=== PATIENT | female | born 1965 | race Caucasian/White ===

== ENCOUNTER 2018-10-15 05:51 | Day surgery (SDC) | payer BC ==
[2018-10-15] MEDS ORDERED: DIPRIVAN 200 MG/20 ML IV ONE (05:52)
[2018-10-15] MEDS ORDERED: Lactated Ringers 1,000 ML IV ONE ×2 (06:51→11:42)
[2018-10-15] MEDS ORDERED: Lactated Ringers 1,000 ML IV SCH (07:00)
[2018-10-15 09:08] VITALS: O2SAT 97
[2018-10-15 09:22] VITALS: BP 125/79; PULSE 79
--- NOTE | 2018-10-15 10:58 | OP ---
SURGERY DATE: 10/15/18 SURGERY TIME: 757 PREOPERATIVE DIAGNOSIS: 1. SCREENING EXAM. POSTOPERATIVE DIAGNOSIS: 1. SIGMOID DIVERTICULOSIS, OTHERWISE NORMAL COLON. PROCEDURE: 1. Colonoscopy. SURGEON: Dr. Griffin. ANESTHESIA: MAC. Medications given by the Anesthesia Department. BRIEF HISTORY: The patient is a 53 y/o WF presenting now for screening colonoscopy. She reports that she has had a previous colonoscopy years ago, but does not remember the results. The patient was felt to need to have endoscopic evaluation. She was appraised of the risks of the procedure including the risk of perforation, phlebitis, untoward reaction to medication, bleeding, and missed lesions. The patient verbalized her understanding and desired to have the procedure performed. DESCRIPTION OF PROCEDURE: The patient was given the medications by the Anesthesia Department. She had continuous pulse oximetry, ECG monitoring, intermittent BP monitoring, and end tidal CO2 monitoring during the examination. She was placed in the left lateral decubitus position. A digital rectal examination was performed and revealed normal anal sphincter tone and no masses. The flexible Olympus pediatric colonoscope was used to intubate the rectum. A view of the colon was developed sequentially to the cecum. Upon insertion and withdrawal, including retroflex view in the rectum was noted moderate sigmoid diverticulosis, otherwise no mucosal lesions were encountered. The scope was removed from the patient who tolerated the procedure well and was sent back to OP recovery in good condition. The prep was noted to be fair.
== END 2018-10-15 09:23 | disposition home or self-care (01) ==
LOC: SDC 05:51
PROVIDERS: ATTEND Family Medicine
PROC: 0DJD8ZZ Inspection of Lower Intestinal Tract, Via Natural or Artificial Opening Endoscopic (ICD-10-PCS; principal; 2018-10-15)
DX: Z12.11 Encounter for screening for malignant neoplasm of colon (principal); K57.30 Diverticulosis of large intestine without perforation or abscess without bleeding; E11.9 Type 2 diabetes mellitus without complications; Z85.3 Personal history of malignant neoplasm of breast; Z79.4 Long term (current) use of insulin; Z79.01 Long term (current) use of anticoagulants
CPT/HCPCS: 82962; J2704

== ENCOUNTER 2019-09-18 01:56 | Emergency (ER) | payer BC ==
--- NOTE | 2019-09-18 02:05 | ERPHSYRPT ---
- History of Present Illness Time Seen by Provider: 09/18/19 02:10 Source: patient Exam Limitations: no limitations Physician History: 54 y/o white female presents with left flank pain and bilat suprapubic cramping. sx began yesterday evening. sx worse in last 3 hours. pt having frequency. no dysuria. no vomiting. Timing/Duration: yesterday, worse (in last 3 hours) Quality: aching, pressure Onset Location: suprapubic, left flank Pain Radiation: suprapubic, generalized flank Severity of Pain-Max: mild Severity of Pain-Current: mild Associated Symptoms: abdominal pain (suprapubic), chills (one episode yesterday) , urinary frequency, lower back pain, No nausea, No vomiting, No dysuria Allergies/Adverse Reactions: amoxicillin Allergy (Verified 09/18/19 02:13) Rash zolpidem [From Ambien] Allergy (Verified 09/18/19 02:13) Rash Home Medications: Apixaban [Eliquis 2.5 mg Tablet] 2.5 mg PO BID 09/30/18 [History] Metformin HCl 500 mg [Glucophage 500 MG] 1,000 mg PO BIDWM 09/30/18 [ History] Oxybutynin Chloride [Oxybutynin Chloride ER] 5 mg PO DAILY 09/18/19 [History] Venlafaxine HCl [Venlafaxine HCl ER] 37.5 mg PO DAILY 09/18/19 [History] Hx Tetanus, Diphtheria Vaccination/Date Given: No Hx Influenza Vaccination/Date Given: Yes Hx Pneumococcal Vaccination/Date Given: Yes - Review of Systems Constitutional: No Symptoms Eyes: No Symptoms Ears, Nose, & Throat: No Symptoms Respiratory: No Symptoms Cardiac: No Symptoms Abdominal/Gastrointestinal: Abdominal Pain (suprapubic ), No Nausea, No Vomiting , No Diarrhea Genitourinary Symptoms: Frequency, Flank Pain (left), No Dysuria, No Urinary Retention Musculoskeletal: No Symptoms Skin: No Symptoms Neurological: No Symptoms Psychological: No Symptoms Endocrine: No Symptoms Hematologic/Lymphatic: No Symptoms - Past Medical History Pertinent Past Medical History: Yes Neurological History: No Pertinent History ENT History: No Pertinent History Cardiac History: Deep Vein Thrombosis Respiratory History: No Pertinent History Endocrine Medical History: No Pertinent History, Diabetes Type II Musculoskeletal History: No Pertinent History GI Medical History: Pancreatitis, Other History: No Pertinent History Psycho-Social History: Depression Female Reproductive Disorders: Fibroids, Breast Cancer, Endometriosis Other Medical History: bharat for surgery on right foot tomorrow - Past Surgical History Past Surgical History: Yes Neuro Surgical History: No Pertinent History Cardiac: No Pertinent History Respiratory: No Pertinent History Gastrointestinal: Cholecystectomy, Pancreatic Surgery Genitourinary: Other Musculoskeletal: No Pertinent History Female Surgical History: Mastectomy, Hysterectomy, Tubal Ligation Other Surgical History: ercp - open abd surgery involving pancrease, gallbladder and peritonitis,stent in bile duct,breast reconstruction,blood clot in foot traveled to lungs - Social History Smoking Status: Never smoker Exposure to second hand smoke: No Drug Use: none Patient Lives Alone: No - Nursing Vital Signs Nursing Vital Signs: Initial Vital Signs Temperature 97.9 F 09/18/19 02:07 Pulse Rate 93 H 09/18/19 02:07 Respiratory Rate 17 09/18/19 02:07 Blood Pressure 145/94 09/18/19 02:07 O2 Sat by Pulse Oximetry 95 09/18/19 02:07 Pain Scale Pain Intensity 9 - Physical Exam General Appearance: mild distress, alert, anxiety Eye Exam: PERRL/EOMI, eyes nml inspection Ears, Nose, Throat Exam: normal ENT inspection, moist mucous membranes Neck Exam: normal inspection, non-tender, supple, full range of motion Respiratory Exam: normal breath sounds, lungs clear, airway intact, No chest tenderness, No respiratory distress Cardiovascular Exam: regular rate/rhythm, normal heart sounds, normal peripheral pulses Gastrointestinal/Abdomen Exam: soft, normal bowel sounds, No tenderness, No guarding, No rebound Pelvic Exam: not done Rectal Exam: not done Back Exam: normal inspection, normal range of motion, CVA tenderness (left) Extremity Exam: normal inspection, normal range of motion, pelvis stable Neurologic Exam: alert, oriented x 3, cooperative, apparel pattern maker II-XII nml as tested Skin Exam: normal color, warm, dry Lymphatic Exam: adenopathy SpO2 Interpretation: normal O2 Delivery: Room Air Ordered Tests: Active Orders 24 hr Category Date Time Status CULTURE,URINE Stat Lab 09/18/19 03:06 Received UA W/RFX UR CULTURE Stat Lab 09/18/19 03:06 Completed Medication Summary Discontinued Medications Generic Name Dose Route Start Last Admin Trade Name Freq PRN Reason Stop Dose Admin Ceftriaxone Sodium 1,000 mg 09/18/19 03:34 Rocephin 1000 Mg Inj IM 09/18/19 03:35 STAT ONE Hydromorphone HCl 1 mg 09/18/19 03:34 Hydromorphone 1 Mg/Ml Ampule IM 09/18/19 03:35 STAT ONE Ondansetron HCl 4 mg 09/18/19 03:35 Zofran Odt 4 Mg PO 09/18/19 03:36 STAT ONE Trimethoprim/Sulfamethoxazole 1 tab 09/18/19 03:34 Bactrim Ds Tablet PO 09/18/19 03:35 STAT ONE Lab/Rad Data: Laboratory Results 09/18/19 Range/Units 03:06 Urine Color YELLOW (YELLOW) Urine Appearance CLOUDY (CLEAR) Urine pH 6.0 (5-6) Ur Specific [place] 1.016 (1.005-1.025) Urine Protein 100 (Negative) Urine Ketones NEGATIVE (NEGATIVE) Urine Blood LARGE (0-5) Wally/ul Urine Nitrite NEGATIVE (NEGATIVE) Urine Bilirubin NEGATIVE (NEGATIVE) Urine Urobilinogen NEGATIVE (0-1) mg/dL Ur Leukocyte Esterase LARGE (NEGATIVE) Urine WBC (Auto) >100 (0-5) /HPF Urine RBC (Auto) >101 (0-2) /HPF U Epithel Cells (Auto) NONE (FEW) /HPF Urine Bacteria (Auto) FEW (NEGATIVE) /HPF Urine Mucus (Auto) SLIGHT (NEGATIVE) /HPF Urine Culture Reflexed YES (NO) Urine Glucose NEGATIVE (NEGATIVE) mg/dL - Progress Progress: improved Air Movement: good Blood Culture(s) Obtained: No Antibiotics given: Yes Counseled pt/family regarding: lab results, diagnosis, need for follow-up - Departure Departure Disposition: Home Clinical Impression: UTI (urinary tract infection) Condition: Stable Critical Care Time: No Referrals: RICHA DOBBINS MD [Primary Care Provider] - Additional Instructions: drink plenty of fluids. add ibuprofen for pain if not allergic. follow up with primary doctor if symptoms persist. return to ED if symptoms worsen Prescriptions: Hydrocodone/APAP 5-325 Tab^^^ [[place] 5-325 Tablet^^^] 1 tab PO Q6HPRN PRN #10 tablet MDD 6 PRN Reason: Pain Smz/Tmp Ds Tablet [Bactrim Ds Tablet] 1 udtab PO BID #20 tablet
[2019-09-18 03:14] LABS: Appearance CLOUDY (CLEAR); Bacteria FEW /HPF (NEGATIVE); Bilirubin NEGATIVE (NEGATIVE); Blood LARGE Ery/ul (0-5); Glucose NEGATIVE (NEGATIVE); Ketones NEGATIVE (NEGATIVE); Leukocyte Esterase LARGE (NEGATIVE); Mucus SLIGHT /HPF (NEGATIVE); Nitrite NEGATIVE (NEGATIVE); Protein,Urine Dip 100 (Negative); RBC >101 /HPF (0-2); Specific Gravity 1.016 (1.005-1.025); Urobilinogen NEGATIVE mg/dL (0-1); WBC >100 /HPF (0-5)
[2019-09-18] MEDS ORDERED: BACTRIM DS TABLET PO ONE ×2 (03:34→03:37)
[2019-09-18] MEDS ORDERED: Hydromorphone 1 mg/ml Ampule IM ONE (03:34)
[2019-09-18] MEDS ORDERED: Rocephin 1000 MG INJ IM ONE (03:34)
[2019-09-18] MEDS ORDERED: ZOFRAN ODT 4 MG PO ONE (03:35)
[2019-09-18] MEDS ORDERED: ZOFRAN ODT 4 MG ONE (03:37)
[2019-09-18] MEDS ORDERED: Hydromorphone 1 mg/ml Ampule ONE (03:37)
[2019-09-18] MEDS ORDERED: Rocephin 1000 MG INJ ONE (03:37)
[2019-09-18 04:13] VITALS: BP 136/79; PULSE 92; O2SAT 94
== END 2019-09-18 04:15 | disposition home or self-care (01) ==
LOC: ED 01:56
DX: N39.0 Urinary tract infection, site not specified (principal)
CPT/HCPCS: 81001; 87077; 87086; 87186; 96372; 99284; J0696; J1170; Q0162; A9270-GY

== ENCOUNTER 2021-01-16 14:43 | Day surgery (SDC) | payer OTHER, BC ==
[2021-01-16] MEDS ORDERED: Xylocaine 1% Vial 30 ML PF IJ ONE (14:44)
[2021-01-16] MEDS ORDERED: Decadron 4 MG INJ IV ONE (14:44)
[2021-01-16] MEDS ORDERED: Depo-Medrol 40 MG/ML IM ONE (14:44)
[2021-01-16] MEDS ORDERED: BUPIVACAINE 0.5% VIAL IJ ONE (14:44)
--- NOTE | 2021-01-16 16:52 | XRAY ---
35 seconds fluoroscopy time in surgery for injections of the left SI joint and left piriformis muscle.
--- NOTE | 2021-01-16 17:01 | XRAY ---
Indication: Left SI joint and left piriformis muscle injection. Intraoperative fluoroscopy provided for 35 seconds. 3 digital spot image submitted for interpretation demonstrates posterior needle tip projecting over the inferior left SI joint. Second needle tip projects over the expected left piriformis muscle with small amount of contrast injected for needle tip placement. Correlate with intraoperative findings/report.
== END 2021-01-16 16:19 | disposition home or self-care (01) ==
LOC: SDC-PAIN 14:43
PROVIDERS: ATTEND Psychiatry & Neurology Pain Medicine
DX: M46.1 Sacroiliitis, not elsewhere classified (principal); E11.9 Type 2 diabetes mellitus without complications; G25.81 Restless legs syndrome; Z85.3 Personal history of malignant neoplasm of breast; G56.01 Carpal tunnel syndrome, right upper limb; F41.8 Other specified anxiety disorders; Z79.899 Other long term (current) drug therapy
CPT/HCPCS: 20550; 27096; 72202; 77002; 82947; J1030; J1100; J2001; Q9966; G0260

== ENCOUNTER 2023-08-19 18:41 | Emergency (ER) | payer BC, OTHER ==
[2023-08-19 18:51] VITALS: TEMP 97.1
[2023-08-19] MEDS ORDERED: Sodium Chloride 0.9% 1000 ML 1,000 ML IV STA (19:28)
[2023-08-19] MEDS ORDERED: BENADRYL 50 MG/ML IV ONE (19:28)
[2023-08-19] MEDS ORDERED: TORAdol 30 mg Injection IV ONE (19:28)
[2023-08-19] MEDS ORDERED: Compazine 10 MG/2 ML IV ONE (19:28)
[2023-08-19] MEDS ORDERED: Compazine 10 MG/2 ML ONE (19:32)
[2023-08-19] MEDS ORDERED: BENADRYL 50 MG/ML ONE (19:32)
[2023-08-19] MEDS ORDERED: Sodium Chloride 0.9% 1000 ML 1,000 ML ONE (19:32)
[2023-08-19 19:45] LABS: INFLUENZA A NEGATIVE (NEGATIVE); INFLUENZA B NEGATIVE (NEGATIVE); RESPIRATORY SYNCTIAL VIRUS NEGATIVE (NEGATIVE); SARS-CoV-2 Xpert Express NEGATIVE (NEGATIVE)
--- NOTE | 2023-08-19 19:47 | ERPHSYRPT ---
- History of Present Illness Time Seen by Provider: 08/19/23 19:30 Source: patient Exam Limitations: no limitations Patient Subjective Stated Complaint: Pt states "I have had a headache for the past four days. I saw Dr. Moreno and he diagnosed my with colitis and I have b een treated with that." Triage Nursing Assessment: Pt presented alert and oriented X 3, skin pwd. Tp ambulates with an upright steady gait, able to speak in clear full sentences. Pt resting comfortably on the bed. Physician History: Patient is a 58-year-old female presents to our emergency department for evaluation of a headache x4 days. Patient has a nasal congestion. patient is currently on a blood thinner for recent history of PE. Patient's headache is frontal. She is currently experiencing some sinus congestion. No trauma no fever. No other associated symptomology. Patient is currently on Flagyl for colitis. Patient states she had some alcohol and shortly thereafter began vomiting. Patient advised that alcohol should not be ingested with metronidazole as it may cause a disulfiram type reaction causing nausea and vomiting. Patient was not aware of this interaction. Patient otherwise has no other complaints. at bedside. They voiced no other complaints or concerns at this time. Portions of this note were created with voice recognition technology. There may be grammatical, spelling, punctuation or sound alike errors Timing/Duration: today Quality: aching Head Pain Location: frontal Severity of Pain-Max: moderate Severity of Pain-Current: mild Recent Head Trauma: no recent headache/trauma Modifying Factors: Improves With: other (None) Associated Symptoms: nasal congestion, No dizziness, No fever/chills, No loss of consciousness, No neck pain, No stiff neck, No vision changes, No visual disturbance, No weakness Previous symptoms: no prior history Allergies/Adverse Reactions: amoxicillin Allergy (Verified 09/18/19 02:13) Rash zolpidem [From Ambien] Allergy (Verified 09/18/19 02:13) Rash Home Medications: Apixaban [Eliquis 2.5 mg Tablet] 2.5 mg PO BID 09/30/18 [History] Metformin HCl 500 mg [Glucophage 500 MG] 1,000 mg PO BIDWM 09/30/18 [History] Oxybutynin Chloride [Oxybutynin Chloride ER] 5 mg PO DAILY 09/18/19 [History] Venlafaxine HCl [Venlafaxine HCl ER] 37.5 mg PO DAILY 09/18/19 [History] Metronidazole 500 mg [Flagyl 500 MG] 500 mg PO DAILY 08/19/23 [History] Hx Tetanus, Diphtheria Vaccination/Date Given: No Hx Influenza Vaccination/Date Given: Yes Hx Pneumococcal Vaccination/Date Given: Yes Immunizations Up to Date: Yes Travel Risk - International Travel Have you traveled outside of the country in past 3 weeks: No - Coronavirus Screening Are you exhibiting any of the following symptoms?: Yes Symptoms: Vomiting/Diarrhea, Headaches/Body Aches/Fatigue - Vaccine Status Have you recieved a Covid-19 vaccination: No - Review of Systems Constitutional: No Symptoms, No Fever, No Chills Eyes: No Symptoms Ears, Nose, & Throat: No Symptoms Respiratory: No Symptoms, No Cough, No Dyspnea Cardiac: No Symptoms, No Chest Pain, No Edema, No Syncope Abdominal/Gastrointestinal: No Symptoms, No Abdominal Pain, No Nausea, No Vomiting, No Diarrhea Genitourinary Symptoms: No Symptoms, No Dysuria Musculoskeletal: No Symptoms, No Back Pain, No Neck Pain Skin: No Symptoms, No Rash Neurological: No Symptoms, No Dizziness, No Focal Weakness, No Sensory Changes Psychological: No Symptoms Endocrine: No Symptoms Hematologic/Lymphatic: No Symptoms Immunological/Allergic: No Symptoms All Other Systems: Reviewed and Negative - Past Medical History Pertinent Past Medical History: Yes Neurological History: No Pertinent History ENT History: No Pertinent History Cardiac History: No Pertinent History Respiratory History: No Pertinent History Endocrine Medical History: Diabetes Type II Musculoskeletal History: Arthritis, Fractures GI Medical History: Pancreatitis, Other History: No Pertinent History Psycho-Social History: Depression Female Reproductive Disorders: Fibroids, Breast Cancer, Endometriosis Other Medical History: breast cancer (2013, L-side mastectomy), R foot fracture, R arm fracture (childhood) - Past Surgical History Past Surgical History: Yes Neuro Surgical History: No Pertinent History Cardiac: No Pertinent History Respiratory: No Pertinent History Gastrointestinal: Cholecystectomy, Pancreatic Surgery Genitourinary: Other Musculoskeletal: No Pertinent History Female Surgical History: Mastectomy, Hysterectomy, Tubal Ligation Other Surgical History: ercp - open abd surgery involving pancrease, gallbladder and peritonitis,stent in bile duct,breast reconstruction,blood clot in foot traveled to lungs - Social History Smoking Status: Never smoker Exposure to second hand smoke: No Drug Use: none Patient Lives Alone: No - Nursing Vital Signs Nursing Vital Signs: Initial Vital Signs Temperature 97.1 F 08/19/23 18:46 Pulse Rate 77 08/19/23 18:46 Respiratory Rate 20 08/19/23 18:46 Blood Pressure 161/99 08/19/23 18:46 O2 Sat by Pulse Oximetry 97 08/19/23 18:46 Pain Scale Pain Intensity 9 - Physical Exam General Appearance: no apparent distress Eye Exam: PERRL/EOMI Ears, Nose, Throat Exam: normal ENT inspection, moist mucous membranes, other (Nasal congestion) Neck Exam: normal inspection, supple, full range of motion, No meningismus Respiratory Exam: normal breath sounds, lungs clear, airway intact Cardiovascular Exam: regular rate/rhythm, normal heart sounds, normal peripheral pulses Gastrointestinal/Abdominal Exam: soft, No tenderness, No distention Back Exam: normal inspection, normal range of motion Mental Status Exam: alert, oriented x 3, cooperative phlebotomy coordinator Exam: normal speech, PERRL, No facial droop Coordination/Gait Exam: normal cerebellar function Motor/Sensory Exam: no motor deficit, no sensory deficit Skin Exam: normal color, warm, dry, No rash Lymphatic Exam: No adenopathy SpO2 Interpretation: normal SpO2: 97 O2 Delivery: Room Air - Course Nursing assessment & vital signs reviewed: Yes - CT Exams Head CT Interpretation: Tele-radiologist Report (Continued normal headache compared to 12/16/2014) Ordered Tests: Active Orders 24 hr Category Date Time Status IV Insertion STAT Care 08/19/23 19:28 Active HEAD WITHOUT CONTRAST [CT] Stat Exams 08/19/23 19:27 Taken Medication Summary Discontinued Medications Generic Name Dose Route Start Last Admin Trade Name Shubham PRN Reason Stop Dose Admin Diphenhydramine HCl 25 mg 08/19/23 19:28 08/19/23 19:34 Diphenhydramine Hcl 50 Mg/Ml Vial IV 08/19/23 19:29 25 mg STAT ONE Administration Diphenhydramine HCl Confirm 08/19/23 19:32 Diphenhydramine Hcl 50 Mg/Ml Vial Administered 08/19/23 19:33 Dose 50 mg .ROUTE .STK-MED ONE Sodium Chloride 1,000 mls @ 999 mls/hr 08/19/23 19:28 08/19/23 20:37 Sodium Chloride 0.9% 1000 Ml IV 08/19/23 20:28 Infused .Q1H1M STA Infusion Sodium Chloride Confirm 08/19/23 19:32 Sodium Chloride 0.9% 1000 Ml Administered 08/19/23 19:33 Dose 1,000 mls @ ud .ROUTE .STK-MED ONE Ketorolac Tromethamine 30 mg 08/19/23 19:28 08/19/23 20:47 Ketorolac Tromethamine 30 Mg/Ml Inj IV 08/19/23 19:29 30 mg STAT ONE Administration Ketorolac Tromethamine Confirm 08/19/23 20:42 Ketorolac Tromethamine 30 Mg/Ml Inj Administered 08/19/23 20:43 Dose 30 mg .ROUTE .STK-MED ONE Prochlorperazine Edisylate 10 mg 08/19/23 19:28 08/19/23 19:33 Prochlorperazine Edisylate 10 Mg/2 Ml Vial IV 08/19/23 19:29 10 mg STAT ONE Administration Prochlorperazine Edisylate Confirm 08/19/23 19:32 Prochlorperazine Edisylate 10 Mg/2 Ml Vial Administered 08/19/23 19:33 Dose 10 mg .ROUTE .STK-MED ONE Lab/Rad Data: Laboratory Results 08/19/23 Range/Units 19:06 Influenza Type A Ag NEGATIVE (NEGATIVE) Influenza Type B Ag NEGATIVE (NEGATIVE) RSV (PCR) NEGATIVE (NEGATIVE) SARS-CoV-2 (PCR) NEGATIVE (NEGATIVE) - Progress Progress: improved Air Movement: good Progress Note: 58-year-old female history of PE currently on blood thinner presents to our ED with a headache. CT head negative for acute intracranial pathology. Patient received IV fluids, Benadryl, Toradol, Compazine. Patient reassessed headache resolved. Patient requesting discharge. She voices no other complaints or co ncerns at this time. Portions of this note were created with voice recognition technology. There may be grammatical, spelling, punctuation or sound alike errors Complexity of problems addressed is moderate acute complicated No critical care time Complex of data reviewed and analyzed is moderate. Test ordered test reviewed. Results analyzed and correlated clinically with history and physical examination. COVID testing negative. State CODA level and why. testing ordered (labs/EKG/imaging). Number of imaging studies. Results obtained/reviewed/analyzed and that results used in MDM. State if patient is independent historian. Any outside documents reviewed. Any independent interpretation of tests/imaging/EKG. Discussion of tests results and management with outside provider CODA (amount and/or complexity of data reviewed and analyzed) Minimal or none Limited (1 of the 2 categories). Category 1, (Any 2 of the 3) -Review outside documents, -Order tests, -Review test results Category 2, -Independent historian other than pt. (8-80yo). parent, copy editor sibling, (State if shingle packer was used) Moderate. (1 of the 3 categories) Category 1. (Any 3 of the 4) -Review outside documents -Order tests -Review test results, -Independent historian other than pt. (8-80yo) Category 2. Independent interpretation of a test/Imaging/EKG (not reported separately) Category 3. Discussion of test interpretation or management with provider/doctor (not reported separately) Extensive. (2 of the 3 categories) Category 1 (Any 3 of the 4) -Review of outside documents -Order test -Review test results -Independent historian other than pt. (8-80yo) Category 2. Independent interpretation of a test/Imaging/EKG (not reported separately) Category 3. Discussion of test interpretation or management with provider/doctor (not reported separately) WENDY PM (risk of complications and or M&M of patient management) -Therapeutic interventions like immediate treatment, medication IM/IV/SQ controlled meds/-benzos/narcotics, nebulizer treatment, IVF, Blood transfusion, (any response to care), -Referrals, consults, discussion with admitting MD -Procedures (CPR, intubation, lac repair), offered, considered, performed, risks/benefits explained to patient, comorbidity effects -State potential risks of meds (blood thinners, anti-arrhythmics, insulin, blood transfusion reaction) -Prescription drugs. (including considered and or offered and why) -State any therapies considered or offered and why Minimal risk-superficial dressings, slings, gargle Low Risk-minor sx (lac repair), PT/OT (walk pt), IVF Moderate Risk-prescriptions, I&D, surgical decisions, Treatment limited by SDOH High Risk- IV/IM/SQ controlled meds, meds requiring monitoring, hospitalization, Nebulizer rx. DNR decision. Dispo (Admit, DC, Transfer, ) Plan of care and any SDOH that may impede follow up like ETOH use, smoking, homelessness, money, family support (ability to access/comply with plan) -Shared decision making (patient agrees to etc) -Time spent to discharge patient. -DC Dx, -DC vitals Level of EM service provided ? Level of EM service provided would be the same as the highest level assigned to IMMANUEL DAVISON, WENDY. (Straight forward (282), Low (283), Moderate (284), High (285), Critical Care) Document everything done in caring for the patient and why. Document if I discussed code status full code/DNR and everything in between Document any changes in working Diagnosis 08/19/23 21:23 Blood Culture(s) Obtained: No Antibiotics given: No Counseled pt/family regarding: diagnosis, need for follow-up, rad results - Departure Departure Disposition: Home Clinical Impression: Nasal congestion, Frontal headache Condition: Stable Critical Care Time: No Referrals: MELODIE MORENO MD [Primary Care Provider] - Follow up/PCP as directed Additional Instructions: Discharge/Care Plan TYRONE DUDLEY was seen on 08/19/23 in the Emergency Room. The patient was counseled regarding Diagnosis,Lab results, Imaging studies, need for follow up and when to return to the Emergency Room. Prescriptions given: Discharge Note I have spoken with the patient and/or caregivers. I have explained the patient's condition, diagnosis and treatment plan based on the information available to me at this time. I have answered the patient's and/or caregiver's questions and addressed any concerns. The patient and/or caregivers have as good understanding of the patient's diagnosis, condition and treatment plan as can be expected at this point. The vital signs have been stable. The patient's condition is stable and appropriate for discharge from the emergency department. The patient will pursue further outpatient evaluation with the primary care physician or other designated or consulting physician as outlined in the discharge instructions. The patient and/or caregivers are agreeable to this plan of care and follow-up instructions have been explained in detail. The patient and/or caregivers have received these instruction. The patient/and or caregivers are aware that any significant change in condition or worsening of symptoms should prompt an immediate return to this or the closest emergency department or call 911.
[2023-08-19 20:23] VITALS: RESP 18
[2023-08-19] MEDS ORDERED: TORAdol 30 mg Injection ONE (20:42)
[2023-08-19 21:26] VITALS: PULSE 64
[2023-08-19 21:36] VITALS: BP 148/89; O2SAT 99
--- NOTE | 2023-08-20 08:34 | XRAY ---
Indication: Headache. Blood thinner therapy. Multiple contiguous axial images obtained through the head without contrast. Comparison: December 16, 2014. Normal appearing brain parenchyma, ventricles, and bony calvarium. Visualized paranasal sinuses and mastoid air cells are clear. Impression: Continued normal CT head without contrast exam.
== END 2023-08-19 21:36 | disposition home or self-care (01) ==
LOC: ED 18:41
DX: R51.9 Headache, unspecified (principal); R09.81 Nasal congestion; E11.9 Type 2 diabetes mellitus without complications; Z79.01 Long term (current) use of anticoagulants; Z79.84 Long term (current) use of oral hypoglycemic drugs; Z79.899 Other long term (current) drug therapy; Z28.310 Unvaccinated for COVID-19
CPT/HCPCS: 0241U; 36000; 70450; 96360; 96374; 99284; 96375; J1200; J1885